=== PATIENT | male | born 1975 | race Hispanic/Latino ===

== ENCOUNTER 2017-12-12 16:59 | Inpatient (IN) | payer SELFPAY ==
[~2017-12-12 16:59] MED LIST: ISOVUE-370 76%-LOCM 1 ML ONE
[2017-12-12 17:46] LABS: #Eosinphils 0.1 thou/uL (0.0-0.7); #Lymphocytes 0.8 thou/uL (1.20-3.40); #Monocytes 0.3 thou/uL (0.11-0.59); %Basophils 0.3 % (0.0-1.0); %Eosinophils 0.6 % (0.0-10.0); %Lymphocytes 7.2 % (21.0-51.0); %Monocytes 2.9 % (0.0-10.0); %Neutrophils 89.1 % (42.0-75.0); Hemoglobin 13.9 g/dL (14.0-18.0); Mean Corpuscular HGB CONC 34.1 g/dL (32.0-36.0); Mean Corpuscular Hemoglobin 32.3 pg (27.0-31.0); Mean Corpuscular Volume 94.7 fL (78.0-98.0); Platelet Count 168 thou/uL (130-400); RBC Distribution Width 11.8 % (11.5-14.5); Red Blood Cell (RBC) Count 4.31 mill/uL (4.70-6.10); White Blood Cell (WBC) Count 11.3 thou/uL (4.8-10.8)
[2017-12-12 18:10] LABS: ALT (SGPT) 121 U/L (8-55); AST (SGOT) 118 U/L (5-34); Albumin 4.1 g/dL (3.5-5.0); Alkaline Phosphatase 106 U/L (40-150); Anion Gap 10 mmol/L (10-20); BUN (Urea Nitrogen) 14 mg/dL (8.9-20.6); Bilirubin, Total 0.9 mg/dL (0.2-1.2); Calc. Creatinine Clearance 0 mL/min (70-130); Calcium 9.2 mg/dL (7.8-10.44); Carbon Dioxide 28 mmol/L (22-29); Chloride 106 mmol/L (98-107); Estimated GFR-MDRD 88; Globulin 2.9 g/dL (2.4-3.5); Glucose 106 mg/dL (70-105); Potassium 4.1 mmol/L (3.5-5.1); Sodium 140 mmol/L (136-145)
[2017-12-12 18:15] LABS: Bilirubin Small (Negative); Blood, Urine Negative (Negative); Clarity CLEAR (Clear); Glucose, Urine (Dipstick) Negative (Negative); Leukocyte Trace (Negative); Nitrite Negative (Negative); Protein, Urine (Dipstick) Trace mg/dL (Neg-Trace); Specific Gravity, Urine 1.021 (1.002-1.036)
[2017-12-12] MEDS ORDERED: diphenhydrAMINE 50 MG/ML VIAL ONE (18:15)
[2017-12-12] MEDS ORDERED: Metoclopramide HCl 10 MG/2 ML VIAL ONE (18:15)
[2017-12-12] MEDS ORDERED: Dicyclomine 20 MG TAB ONE (18:15)
[2017-12-12 18:18] LABS: Bacteria/HPF None Seen HPF (None Seen); Hyaline Casts/LPF 4-6 HYALINE CAST LPF (0-3 Hyaline); Pathc Cast-AUWi Flag 0.29 (0-2.49); RBC/HPF None Seen HPF (0-3); Squamous Epithelial 0-3 HPF (0-3); WBC/HPF 0-3 HPF (0-3)
--- NOTE | 2017-12-12 21:16 | CT ---
CT BRAIN NONCONTRAST: DATE: 12/12/17 TIME: 6:21 p.m. HISTORY: 41-year-old male with headache. COMPARISON: None. FINDINGS: In the lateral aspect of the left temporal lobe, there is a subtle, 1 cm round intra-axial lesion whi ch is slightly higher in density compared to the adjacent brain parenchyma. The ventricles are normal in size and configuration. There is no mass effect, midline shift, extra-ax ial fluid collection, acute intra-axial or extra-axial hemorrhage, or calvarial fracture. The upper p ortions of the paranasal sinuses, and the bilateral tympanomastoid cavities, are clear. IMPRESSION: Small round apparent intra-axial mass in the left temporal lobe. Recommend further evaluation with MR I of the brain with and without contrast. MIKAELA Gavin POS: ABDIFATAH
[2017-12-12] MEDS ORDERED: Ondansetron ODT 4 MG TAB PO PRN (21:59)
[2017-12-12] MEDS ORDERED: HYDROcodone/Acetaminophen 5/325 mg Tablet PO PRN (21:59)
[2017-12-12] MEDS ORDERED: Acetaminophen 325 MG TAB PO PRN (21:59)
[2017-12-12 22:41] LABS: #Eosinphils 0.2 thou/uL (0.0-0.7); #Lymphocytes 1.5 thou/uL (1.20-3.40); #Monocytes 0.5 thou/uL (0.11-0.59); #Neutrophils 9.4 thou/uL (1.40-6.50); %Basophils 0.4 % (0.0-1.0); %Eosinophils 1.4 % (0.0-10.0); %Lymphocytes 12.9 % (21.0-51.0); %Monocytes 4.1 % (0.0-10.0); %Neutrophils 81.3 % (42.0-75.0); Hemoglobin 13.4 g/dL (14.0-18.0); Mean Corpuscular HGB CONC 35.2 g/dL (32.0-36.0); Mean Corpuscular Hemoglobin 33.1 pg (27.0-31.0); Mean Corpuscular Volume 94.3 fL (78.0-98.0); Mean Platelet Volume 10.1 fL (7.4-10.4); Platelet Count 168 thou/uL (130-400); RBC Distribution Width 11.8 % (11.5-14.5); Red Blood Cell (RBC) Count 4.05 mill/uL (4.70-6.10); White Blood Cell (WBC) Count 11.6 thou/uL (4.8-10.8)
[2017-12-12 23:03] LABS: Anion Gap 10 mmol/L (10-20); BUN (Urea Nitrogen) 13 mg/dL (8.9-20.6); Calc. Creatinine Clearance 0 mL/min (70-130); Calcium 8.4 mg/dL (7.8-10.44); Carbon Dioxide 26 mmol/L (22-29); Chloride 107 mmol/L (98-107); Estimated GFR-MDRD Greater than 90; Glucose 152 mg/dL (70-105); Potassium 3.8 mmol/L (3.5-5.1); Sodium 139 mmol/L (136-145)
--- NOTE | 2017-12-12 23:10 | CT ---
CT THORAX WITH CONTRAST CT ABDOMEN WITH CONTRAST CT PELVIS WITH CONTRAST: DATE: 12/12/17 HISTORY: 41-year-old male with a small possible brain mass. Metastatic workup. Diarrhea. TECHNIQUE: IV iodinated contrast media: Isovue Oral contrast media: Not administered Single phase scans of thorax, abdomen, and pelvis. FINDINGS: Thorax: There are hazy interstitial densities throughout the posterior aspects of the bilateral lower lobes, probably representing dependent changes. No suspicious pulmonary mass, pleural effusion, pneumothorax , destructive osseous lesion, mediastinal lymphadenopathy, or hilar lymphadenopathy. Abdomen and pelvis: Diffusely low hepatic attenuation consistent with fatty liver. Hepatomegaly. No suspicious hepatic ma ss. Bilateral kidneys, abdominal aorta, adrenals, pancreas, and spleen, are normal. Surgical clips at medial surface of cecum. Appendix not visualized. No small bowel dilation. No colonic diverticulitis . No retroperitoneal, mesenteric or iliac chain lymphadenopathy. Normal urinary bladder. No destructi ve osseous mass. IMPRESSION: 1. No evidence of malignant neoplasm in the thorax, abdomen or pelvis. 2. Probable status post appendectomy. 3. Hepatic steatosis and hepatomegaly. MIKAELA Gavin POS: ABDIFATAH
[2017-12-12] MEDS: Sodium Chloride 0.9% 1,000 ML IV SCH (23:30)
[2017-12-12 23:35] VITALS: BMI 41.8
[2017-12-13 04:50] LABS: INR-International Normal Ratio 1.1; PTT 38.7 SEC (22.9-36.1); Prothrombin Time 14.3 SEC (12.0-14.7)
--- NOTE | 2017-12-13 08:04 | HP ---
Austin Soares PA-C dictating for Meek De Luna MD This is a 50-minute initial patient consult with greater than 50% of the exam was spent counseling an d coordinating patient's care. Remainder of the exam was spent reviewing patient's medical record an d appropriate imaging studies. CHIEF COMPLAINT: Headache for the last 2 weeks. HISTORY OF PRESENT ILLNESS: Mr. Dockery is a pleasant [place] speaking only male presents to [facility] Emergency Room for the above complaints with his . Apparently, the patient had new-onset b ifrontal and occipital headaches for the past 2 weeks. Initially he claim this on dehydration, as he works outside most of the day, but states that this progressed over the past 2 weeks. He was given a headache cocktail in the emergency room and noted that his headache was improving. A head CT was o btained that shows a 1-cm left temporal mass without significant edema or mass effect and without a h emorrhagic component. The patient currently denies nausea, vomiting, blurred vision, weakness in the extremities, or falls. He is a nonsmoker and is not on blood thinners. The patient does not have a history of seizures. PHYSICAL EXAMINATION: Patient is awake, alert, and appropriate. He has full strength in the bilater al upper extremities and lower extremities with intact sensation to light touch throughout. He has n o pronator drift. Pupils are equal, round, and reactive bilaterally. He is neurologically intact an d his GCS currently is 15. IMPRESSION: Headache, new-onset headache with left-temporal mass. PLAN: I discussed patient's case and imaging with Dr. De Luna. At this time, we will order a chest, abdomen, and pelvis CT scan with contrast and a brain MRI with and without contrast to determine the type of lesion that the patient have. 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 W e will admit him to the ICU with q.1 hour neuro checks and his head of bed will be elevated at 30 deg zara. I have also consulted, his systolic blood pressure to remain less than 150. Again, we will mo nitor patient's neurologic status, but we will need more studies noted in order to determine appropri ate treatment for the patient. Please call with any changes in patient's neurologic status.
[2017-12-13] MEDS ORDERED: traMADol HCl 50 MG TAB PO PRN (09:01)
[2017-12-13] MEDS: Sodium Chloride 0.9% 1,000 ML IV SCH (09:37)
--- NOTE | 2017-12-13 10:10 | PRG ---
DATE OF SERVICE: 12/13/2017 This is a 30-minute initial hospital visit note in which 30 minutes were spent in reviewing the imagi ng, record, evaluation, examination of the patient, and formulation of plan. Greater than 50% of the time was spent in counseling on Siddhartha Dockery. CHIEF COMPLAINT: Left temporal mass with headache. HISTORY OF PRESENT ILLNESS: Mr. Dockery is a 41-year-old man, [place]o speaking only, who presented with a couple weeks of headache. A head CT demonstrates approximately a 1 cm mass in the left tempo ral lobe. There was no clear perilesional edema and we have ordered an MRI of the brain without and with contrast using brain lab protocol and an MRA for today. We will plan on transferring him to the floor as he has been neurologically stable with no hemodynamic issues. It is really unclear what th is mass is and the MRI will tell us more. On exam, there is a nonfocal exam. He speaks [place]o fluently. DIAGNOSES: 1. Left temporal mass of unknown etiology. 2. Headache.
--- NOTE | 2017-12-13 13:19 | MRI ---
MR ANGIOGRAM OF THE [place]: HISTORY: Left temporal lesion. COMPARISON: None. TECHNIQUE: An MR angiogram of the [place] is performed in the axial plane, utilizing 3D [id number] imaging. FINDINGS: Symmetric flow related signal in the distal cervical and intracranial internal carotid artery. Anterior circulation: Symmetric flow-related signal in the A1 and M1 segments. Symmetric flow-relat ed signal in the proximal A2 segments and proximal MCA branches. Of note, there is a trident appeara nce of the A2 segment. The left vertebral artery is dominant. Limited evaluation of the right PICA origin. The left PICA o rigin is unremarkable. Both vertebral arteries do supply a normal appearing basilar artery with appr opriate flow-related signal. The left and right P1 segments have appropriate flow-related signal. There is no vascular abnormality appreciated in the proximal left MCA distribution, specifically in t he left temporal lobe. IMPRESSION: Unremarkable magnetic resonance angiogram of the [place]. POS: ABDIFATAH
--- NOTE | 2017-12-13 13:48 | MRI ---
BRAIN MRI WITH AND WITHOUT CONTRAST: HISTORY: Left temporal lobe lesion noted on recent CT. COMPARISON: None. CORRELATION: Brain CT 12/12/17. FINDINGS: Brain MRI is performed with and without intravenous Gadolinium administration. Multisequential, mult iplanar imaging is performed. FINDINGS: No hemorrhage on the axial gradient echo sequence. NO parenchymal mass, mass effect, or midline shif t. Brain volume is age appropriate. Cortical hameed-white matter differentiation is preserved. Ventr icles and sulci are patent and symmetric. Central arterial flow voids are maintained. Absent restricted diffusion. Minimal white matter hyperintensities in the axial T2 and FLAIR sequence, nonspecific. Adequate aera tion of the sinuses and mastoid air cells. Minimal mucosal disease. No pathologic enhancement of the brain parenchyma. IMPRESSION: No MR evidence of a mass as suggested on the recent CT. POS: ABDIFATAH
[2017-12-14] MEDS: Sodium Chloride 0.9% 1,000 ML IV SCH (01:09)
[2017-12-14 11:45] VITALS: BP 155/82; TEMP 98.2
--- NOTE | 2017-12-14 12:48 | DIS ---
DATE OF ADMISSION: 12/12/2017 DATE OF DISCHARGE: 12/14/2017 DISCHARGE DIAGNOSES: Headache. HOSPITAL COURSE: Mr. Dockery was admitted for bifrontal headaches with incidental finding of what was thought to be an ovoid lesion on CT scan. He subsequently underwent an MRI of the brain with and without contrast that showed no concerning pathology whatsoever. Again, more than likely what had o ccurred was there was artifact on CT scan. Given pain medications, the patient's headache improved d uring his course in the hospital. He has now met discharge criteria and is stable neurologically. Raheem jones has good strength in the bilateral upper and bilateral lower extremities, again with improvement of headache. There is no need for neurosurgical intervention or follow up, but he should follow up wit Neurology on an outpatient basis for headache control. Ample opportunity was given to the patient and his to discuss their questions and concerns and they are certainly pleased the patient does not have any acute pathology including negative parasitic infection and no tumor. They understand to call the office in the meantime. Otherwise, they will followup with Neurology.
== END 2017-12-14 11:35 | disposition home or self-care (01) | DRG 103 ==
LOC: ERS 16:59 → CCU 21:59 → SURG B 12-13 09:05
PROVIDERS: ADMIT Surgery; ATTEND Surgery
DX: R51 Headache (principal)
CPT/HCPCS: 36415; 70450; 70544; 70553; 71260; 74177; 80053; 81003; 81015; 85025; 85610; 85730; 90471; 90732; 96365; 96375; A4216; G0009; J1200; J2765